=== PATIENT | female | born 1950 | race Caucasian/White ===

== ENCOUNTER 2022-09-16 14:13 | Observation (INO) ==
[2022-09-16] MEDS ORDERED: SODIUM CHLORIDE 0.9% 1000ML 500 ML IV ONE (14:41)
--- NOTE | 2022-09-16 14:53 | Emergency Department Note ---
History of Present Illness General Chief complaint: Altered Mental Status Stated complaint: MEMORY LOSS, WEAKNESS, NUMBNESS, TINGLING Time Seen by Provider: 09/16/22 14:30 Source: patient and family (Daughter is at bedside) History of Present Illness Provider complaint: Weakness numbness altered mental status 72-year-old female presents emergency department for weakness numbness and altered mental status. Daughter reports that she had not heard much from the m other today so she came home and found her on the toilet very confused. She states she is very weak and having difficulty standing and moving. Patient reports she cannot remember what happened today. Daughter reports that she was at the patient's house at 8 PM yesterday and she is totally normal. The daughter does report that the patient was reporting extreme stress yesterday Home Medications Medication Instructions Recorded Confirmed Type multivitamin 1 tab PO DAILY 09/16/22 09/16/22 History Allergies Allergy/AdvReac Type Severity Reaction Status Date / Time No Known Allergies Allergy Unverified 09/16/22 17:25 Past Med/Surg History Medical History (Updated 09/16/22 @ 19:48 by Abraham Castelan MD) No pertinent family history No pertinent past medical history Surgical History (Updated 09/16/22 @ 14:52 by Abraham Castelan MD) No pertinent past surgical history Social History Smoking Status: Never smoker Feels Safe at Home: Yes Physical Exam Vital Signs Vital Signs - 24 hr 09/16/22 14:21 09/16/22 15:09 09/16/22 15:41 Temperature 36.8 C Temperature Source Skin Pulse Rate 101 H 97 H Pulse Rate [Apical] 98 H Respiratory Rate 18 18 Blood Pressure 138/73 Blood Pressure [Right Arm] 131/71 Blood Pressure Mean 94 Blood Pressure Mean [Right Arm] 91 Blood Pressure Position [Right Arm] Lying Pulse Oximetry 95 95 Oxygen Delivery Method Room Air Room Air Sepsis Recent Fever Within 48 Hours No Sepsis New/Unexplained Change in Mental Status No Sepsis Action Taken by Nursing No Action Required 09/16/22 16:14 09/16/22 19:40 Temperature Temperature Source Pulse Rate 87 Pulse Rate [Apical] 103 H Respiratory Rate 18 Blood Pressure Blood Pressure [Right Arm] 136/72 Blood Pressure Mean Blood Pressure Mean [Right Arm] 93 Blood Pressure Position [Right Arm] Pulse Oximetry 97 Oxygen Delivery Method Room Air Sepsis Recent Fever Within 48 Hours Sepsis New/Unexplained Change in Mental Status Sepsis Action Taken by Nursing Physical Exam GENERAL: She is oriented to person, place, and time. She appears well-developed and well-nourished. She does not appear distressed. HENT: Exam performed. -Head: Normocephalic and atraumatic. -Right Ear: External ear normal. No mastoid erythema -Left Ear: External ear normal. No mastoid erythema EYES: Conjunctivae and EOM are normal.Right eye exhibits no discharge. Left eye exhibits no discharge. No scleral icterus. NECK: Normal range of motion. Neck supple. No JVD present. No spinous process tenderness present. No carotid bruit present. No rigidity. No tracheal deviation and normal range of motion present. No Brudzinski's sign and no Kernig's sign noted. CV: Normal rate, regular rhythm, normal heart sounds and intact distal pulses. There is no peripheral edema. Palpable radial pulses bue. PULM/CHEST: Effort normal and breath sounds normal. No respiratory distress. No stridor. She has no wheezes. She has no rales. MUSC/SKEL: Normal range of motion. There is no peripheral edema, tenderness or deformity. NEURO: No aphasia or dysarthria. She has normal strength. No cranial nerve deficit or sensory deficit. Cerebellar tests wnl. SKIN: Skin is warm and dry. She is not diaphoretic. Course Course 1430: The patient was evaluated in room C10. A complete history and physical exam was performed Cardiac monitoring: An order was placed for continuous cardiac monitoring. The monitor shows a rate of 100 with sinus rhythm interpreted by in 1711: Vital signs stable. Labs and imaging within normal limits. Patient alert and oriented with no focal neurological deficit no meningeal signs. Family now reports that the patient was recently bit by a tick. No lab evidence of anapla smosis this time however peripheral smear and Lyme screen ordered for the patient. Patient was offered inpatient observation for MRI and neurology evaluation versus outpatient follow-up and outpatient MRI. Family discussed with the patient and they request inpatient observation. [facility] team Dr. Mayfield will be notified. 1945: Vital signs stable. Patient's Lyme testing came back equivocal. Patient be given Doxy orally. Administered Medications Discontinued Medications Sodium Chloride (Nss 1000ml) 500 mls @ 999 mls/hr IV .Q31M ONE Stop: 09/16/22 15:11 Last Infusion: 09/16/22 18:01 Dose: 0 mls/hr Documented By: Admin: 09/16/22 16:13 Dose: 999 mls/hr Documented By: MIESHA Ioversol (Optiray 320 500ml) 106 ml IV ONCE ONE Stop: 09/16/22 16:05 Last Admin: 09/16/22 16:05 Dose: 106 ml Documented By: [facility] Medical Decision Making Laboratory Data Attestation: I reviewed the patient's lab results. 09/16/22 14:50 09/16/22 14:50 Lab Results 09/16/22 09/16/22 09/16/22 Range/Units 14:35 14:50 14:50 WBC 4.66 L (4.8-10.8) K/ul RBC 4.14 L (4.20-5.40) M/uL Hgb 12.7 (12.0-16.0) g/dl Hct 37.6 (37.0-47.0) % MCV 90.8 (80.0-100.0) fL MCH 30.7 (25.0-34.0) pg MCHC 33.8 (32.0-36.0) g/dL RDW Std Deviation 44.6 (36.4-46.3) fL RDW Coeff of Danielle 13.4 (11.5-14.5) % Plt Count 221 (130-400) K/uL MPV 8.9 L (9.4-12.4) fL Immature Gran % (Auto) 0.4 % Neut % (Auto) 79.8 % Lymph % (Auto) 13.5 % [place] % (Auto) 5.2 % Eos % (Auto) 0.2 % Baso % (Auto) 0.9 % Neut # (Auto) 3.72 (1.40-6.50) K/uL Lymph # (Auto) 0.63 L (1.2-3.4) K/uL [place] # (Auto) 0.24 (0.11-0.59) K/uL Eos # (Auto) 0.01 (0-0.50) K/uL Baso # (Auto) 0.04 (0-0.2) K/uL Immature Gran # (Auto) 0.02 (0.01-0.20) K/uL PT 11.0 (9.0-12.0) Seconds INR 1.0 (0.9-1.1) APTT 25.0 (21.0-31.0) Seconds PTT Ratio 0.9 VBG pH (7.36-7.41) VBG pCO2 (38-50) mmHg VBG pO2 mmHg VBG HCO3 mmol/L VBG O2 Saturation % VBG Base Excess mEq/L Carboxyhemoglobin % THgb Sodium (136-145) mmol/L Potassium (3.5-5.1) mmol/L Chloride (98-107) mmol/L Carbon Dioxide (21-32) mmol/L Anion Gap (3-11) BUN (6-23) mg/dl Creatinine (0.6-1.2) mg/dl Est Cr Clr Drug Dosing Est GFR ( Amer) ml/min Est GFR (Non-Af Amer) ml/min BUN/Creatinine Ratio (10-20) Glucose (70-99(Fasting)) mg/dl POC Glucose 100 H (70-99) mg/dl Calcium (8.6-10.3) mg/dl Magnesium (1.7-2.4) mg/dl Total Bilirubin (0.2-1.0) mg/dl AST (13-39) U/L ALT (7-52) U/L Alkaline Phosphatase (34-104) U/L Ammonia (18-72) umol/L Total Creatine Kinase (26-192) U/L Troponin I High Sens (0-14) pg/ml Total Protein (6.0-8.3) gm/dl Albumin (3.4-5.0) gm/dl Globulin (2.5-4.0) gm/dl Albumin/Globulin Ratio (0.9-2) Urine Color Urine Appearance (Clear) Urine pH (4.5-7.5) Ur Specific Brunson (1.000-1.030) Urine Protein (Negative) Urine Glucose (UA) (Negative) Urine Ketones (Negative) Urine Blood (Negative) Urine Nitrite (Negative) Urine Bilirubin (Negative) Urine Urobilinogen (Negative) Ur Leukocyte Esterase (Negative) Urine WBC (Auto) (0-5) /hpf Urine RBC (Auto) (0-4) /hpf U Hyaline Cast (Auto) (0-5) /lpf U Epithel Cells (Auto) (0-5) /lpf Urine Bacteria (Auto) (Negative) Calcium Oxalate Crystal (None Prsent) Ethyl Alcohol mg/dL (<10.0) mg/dl Anaplasma Smear Babesia Smear Lyme Disease IgG Ab (Negative) Lyme Disease IgM Ab (Negative) SARS-CoV-2, RNA, NAAT (NEGATIVE) Blood Type Antibody Screen 09/16/22 09/16/22 09/16/22 Range/Units 14:50 14:50 14:50 WBC (4.8-10.8) K/ul RBC (4.20-5.40) M/uL Hgb (12.0-16.0) g/dl Hct (37.0-47.0) % MCV (80.0-100.0) fL MCH (25.0-34.0) pg MCHC (32.0-36.0) g/dL RDW Std Deviation (36.4-46.3) fL RDW Coeff of Danielle (11.5-14.5) % Plt Count (130-400) K/uL MPV (9.4-12.4) fL Immature Gran % (Auto) % Neut % (Auto) % Lymph % (Auto) % [place] % (Auto) % Eos % (Auto) % Baso % (Auto) % Neut # (Auto) (1.40-6.50) K/uL Lymph # (Auto) (1.2-3.4) K/uL [place] # (Auto) (0.11-0.59) K/uL Eos # (Auto) (0-0.50) K/uL Baso # (Auto) (0-0.2) K/uL Immature Gran # (Auto) (0.01-0.20) K/uL PT (9.0-12.0) Seconds INR (0.9-1.1) APTT (21.0-31.0) Seconds PTT Ratio VBG pH (7.36-7.41) VBG pCO2 (38-50) mmHg VBG pO2 mmHg VBG HCO3 mmol/L VBG O2 Saturation % VBG Base Excess mEq/L Carboxyhemoglobin % THgb Sodium 135 L (136-145) mmol/L Potassium 3.8 (3.5-5.1) mmol/L Chloride 104 (98-107) mmol/L Carbon Dioxide 24 (21-32) mmol/L Anion Gap 7 (3-11) BUN 9 (6-23) mg/dl Creatinine 0.69 (0.6-1.2) mg/dl Est Cr Clr Drug Dosing Not Reportable Est GFR ( Amer) 99.4 ml/min Est GFR (Non-Af Amer) 85.8 ml/min BUN/Creatinine Ratio 13.0 (10-20) Glucose 103 H (70-99(Fasting)) mg/dl POC Glucose (70-99) mg/dl Calcium 8.8 (8.6-10.3) mg/dl Magnesium 2.0 (1.7-2.4) mg/dl Total Bilirubin 0.6 (0.2-1.0) mg/dl AST 15 (13-39) U/L ALT 11 (7-52) U/L Alkaline Phosphatase 34 (34-104) U/L Ammonia 22.0 (18-72) umol/L Total Creatine Kinase 50 (26-192) U/L Troponin I High Sens 4.7 (0-14) pg/ml Total Protein 7.4 (6.0-8.3) gm/dl Albumin 4.0 (3.4-5.0) gm/dl Globulin 3.4 (2.5-4.0) gm/dl Albumin/Globulin Ratio 1.2 (0.9-2) Urine Color Urine Appearance (Clear) Urine pH (4.5-7.5) Ur Specific Brunson (1.000-1.030) Urine Protein (Negative) Urine Glucose (UA) (Negative) Urine Ketones (Negative) Urine Blood (Negative) Urine Nitrite (Negative) Urine Bilirubin (Negative) Urine Urobilinogen (Negative) Ur Leukocyte Esterase (Negative) Urine WBC (Auto) (0-5) /hpf Urine RBC (Auto) (0-4) /hpf U Hyaline Cast (Auto) (0-5) /lpf U Epithel Cells (Auto) (0-5) /lpf Urine Bacteria (Auto) (Negative) Calcium Oxalate Crystal (None Prsent) Ethyl Alcohol mg/dL (<10.0) mg/dl Anaplasma Smear See Comment Babesia Smear See Comment Lyme Disease IgG Ab (Negative) Lyme Disease IgM Ab (Negative) SARS-CoV-2, RNA, NAAT (NEGATIVE) Blood Type Antibody Screen 09/16/22 09/16/22 09/16/22 Range/Units 14:50 14:56 14:56 WBC (4.8-10.8) K/ul RBC (4.20-5.40) M/uL Hgb (12.0-16.0) g/dl Hct (37.0-47.0) % MCV (80.0-100.0) fL MCH (25.0-34.0) pg MCHC (32.0-36.0) g/dL RDW Std Deviation (36.4-46.3) fL RDW Coeff of Danielle (11.5-14.5) % Plt Count (130-400) K/uL MPV (9.4-12.4) fL Immature Gran % (Auto) % Neut % (Auto) % Lymph % (Auto) % [place] % (Auto) % Eos % (Auto) % Baso % (Auto) % Neut # (Auto) (1.40-6.50) K/uL Lymph # (Auto) (1.2-3.4) K/uL [place] # (Auto) (0.11-0.59) K/uL Eos # (Auto) (0-0.50) K/uL Baso # (Auto) (0-0.2) K/uL Immature Gran # (Auto) (0.01-0.20) K/uL PT (9.0-12.0) Seconds INR (0.9-1.1) APTT (21.0-31.0) Seconds PTT Ratio VBG pH (7.36-7.41) VBG pCO2 (38-50) mmHg VBG pO2 mmHg VBG HCO3 mmol/L VBG O2 Saturation % VBG Base Excess mEq/L Carboxyhemoglobin % THgb Sodium (136-145) mmol/L Potassium (3.5-5.1) mmol/L Chloride (98-107) mmol/L Carbon Dioxide (21-32) mmol/L Anion Gap (3-11) BUN (6-23) mg/dl Creatinine (0.6-1.2) mg/dl Est Cr Clr Drug Dosing Est GFR ( Amer) ml/min Est GFR (Non-Af Amer) ml/min BUN/Creatinine Ratio (10-20) Glucose (70-99(Fasting)) mg/dl POC Glucose (70-99) mg/dl Calcium (8.6-10.3) mg/dl Magnesium (1.7-2.4) mg/dl Total Bilirubin (0.2-1.0) mg/dl AST (13-39) U/L ALT (7-52) U/L Alkaline Phosphatase (34-104) U/L Ammonia (18-72) umol/L Total Creatine Kinase (26-192) U/L Troponin I High Sens (0-14) pg/ml Total Protein (6.0-8.3) gm/dl Albumin (3.4-5.0) gm/dl Globulin (2.5-4.0) gm/dl Albumin/Globulin Ratio (0.9-2) Urine Color Urine Appearance (Clear) Urine pH (4.5-7.5) Ur Specific Brunson (1.000-1.030) Urine Protein (Negative) Urine Glucose (UA) (Negative) Urine Ketones (Negative) Urine Blood (Negative) Urine Nitrite (Negative) Urine Bilirubin (Negative) Urine Urobilinogen (Negative) Ur Leukocyte Esterase (Negative) Urine WBC (Auto) (0-5) /hpf Urine RBC (Auto) (0-4) /hpf U Hyaline Cast (Auto) (0-5) /lpf U Epithel Cells (Auto) (0-5) /lpf Urine Bacteria (Auto) (Negative) Calcium Oxalate Crystal (None Prsent) Ethyl Alcohol mg/dL < 10.0 (<10.0) mg/dl Anaplasma Smear Babesia Smear Lyme Disease IgG Ab Positive A (Negative) Lyme Disease IgM Ab Equivocal A (Negative) SARS-CoV-2, RNA, NAAT (NEGATIVE) Blood Type A Positive Antibody Screen NEGATIVE 09/16/22 09/16/22 09/16/22 Range/Units 14:56 14:56 17:20 WBC (4.8-10.8) K/ul RBC (4.20-5.40) M/uL Hgb (12.0-16.0) g/dl Hct (37.0-47.0) % MCV (80.0-100.0) fL MCH (25.0-34.0) pg MCHC (32.0-36.0) g/dL RDW Std Deviation (36.4-46.3) fL RDW Coeff of Danielle (11.5-14.5) % Plt Count (130-400) K/uL MPV (9.4-12.4) fL Immature Gran % (Auto) % Neut % (Auto) % Lymph % (Auto) % [place] % (Auto) % Eos % (Auto) % Baso % (Auto) % Neut # (Auto) (1.40-6.50) K/uL Lymph # (Auto) (1.2-3.4) K/uL [place] # (Auto) (0.11-0.59) K/uL Eos # (Auto) (0-0.50) K/uL Baso # (Auto) (0-0.2) K/uL Immature Gran # (Auto) (0.01-0.20) K/uL PT (9.0-12.0) Seconds INR (0.9-1.1) APTT (21.0-31.0) Seconds PTT Ratio VBG pH 7.42 H (7.36-7.41) VBG pCO2 40 (38-50) mmHg VBG pO2 22 mmHg VBG HCO3 26 mmol/L VBG O2 Saturation < 60.0 % VBG Base Excess 1.3 mEq/L Carboxyhemoglobin 1.0 % THgb Sodium (136-145) mmol/L Potassium (3.5-5.1) mmol/L Chloride (98-107) mmol/L Carbon Dioxide (21-32) mmol/L Anion Gap (3-11) BUN (6-23) mg/dl Creatinine (0.6-1.2) mg/dl Est Cr Clr Drug Dosing Est GFR ( Amer) ml/min Est GFR (Non-Af Amer) ml/min BUN/Creatinine Ratio (10-20) Glucose (70-99(Fasting)) mg/dl POC Glucose (70-99) mg/dl Calcium (8.6-10.3) mg/dl Magnesium (1.7-2.4) mg/dl Total Bilirubin (0.2-1.0) mg/dl AST (13-39) U/L ALT (7-52) U/L Alkaline Phosphatase (34-104) U/L Ammonia (18-72) umol/L Total Creatine Kinase (26-192) U/L Troponin I High Sens (0-14) pg/ml Total Protein (6.0-8.3) gm/dl Albumin (3.4-5.0) gm/dl Globulin (2.5-4.0) gm/dl Albumin/Globulin Ratio (0.9-2) Urine Color Urine Appearance (Clear) Urine pH (4.5-7.5) Ur Specific Brunson (1.000-1.030) Urine Protein (Negative) Urine Glucose (UA) (Negative) Urine Ketones (Negative) Urine Blood (Negative) Urine Nitrite (Negative) Urine Bilirubin (Negative) Urine Urobilinogen (Negative) Ur Leukocyte Esterase (Negative) Urine WBC (Auto) (0-5) /hpf Urine RBC (Auto) (0-4) /hpf U Hyaline Cast (Auto) (0-5) /lpf U Epithel Cells (Auto) (0-5) /lpf Urine Bacteria (Auto) (Negative) Calcium Oxalate Crystal (None Prsent) Ethyl Alcohol mg/dL (<10.0) mg/dl Anaplasma Smear Babesia Smear Lyme Disease IgG Ab (Negative) Lyme Disease IgM Ab (Negative) SARS-CoV-2, RNA, NAAT NEGATIVE (NEGATIVE) Blood Type Antibody Screen 09/16/22 Range/Units 17:20 WBC (4.8-10.8) K/ul RBC (4.20-5.40) M/uL Hgb (12.0-16.0) g/dl Hct (37.0-47.0) % MCV (80.0-100.0) fL MCH (25.0-34.0) pg MCHC (32.0-36.0) g/dL RDW Std Deviation (36.4-46.3) fL RDW Coeff of Danielle (11.5-14.5) % Plt Count (130-400) K/uL MPV (9.4-12.4) fL Immature Gran % (Auto) % Neut % (Auto) % Lymph % (Auto) % [place] % (Auto) % Eos % (Auto) % Baso % (Auto) % Neut # (Auto) (1.40-6.50) K/uL Lymph # (Auto) (1.2-3.4) K/uL [place] # (Auto) (0.11-0.59) K/uL Eos # (Auto) (0-0.50) K/uL Baso # (Auto) (0-0.2) K/uL Immature Gran # (Auto) (0.01-0.20) K/uL PT (9.0-12.0) Seconds INR (0.9-1.1) APTT (21.0-31.0) Seconds PTT Ratio VBG pH (7.36-7.41) VBG pCO2 (38-50) mmHg VBG pO2 mmHg VBG HCO3 mmol/L VBG O2 Saturation % VBG Base Excess mEq/L Carboxyhemoglobin % THgb Sodium (136-145) mmol/L Potassium (3.5-5.1) mmol/L Chloride (98-107) mmol/L Carbon Dioxide (21-32) mmol/L Anion Gap (3-11) BUN (6-23) mg/dl Creatinine (0.6-1.2) mg/dl Est Cr Clr Drug Dosing Est GFR ( Amer) ml/min Est GFR (Non-Af Amer) ml/min BUN/Creatinine Ratio (10-20) Glucose (70-99(Fasting)) mg/dl POC Glucose (70-99) mg/dl Calcium (8.6-10.3) mg/dl Magnesium (1.7-2.4) mg/dl Total Bilirubin (0.2-1.0) mg/dl AST (13-39) U/L ALT (7-52) U/L Alkaline Phosphatase (34-104) U/L Ammonia (18-72) umol/L Total Creatine Kinase (26-192) U/L Troponin I High Sens (0-14) pg/ml Total Protein (6.0-8.3) gm/dl Albumin (3.4-5.0) gm/dl Globulin (2.5-4.0) gm/dl Albumin/Globulin Ratio (0.9-2) Urine Color Yellow Urine Appearance Clear (Clear) Urine pH 6.5 (4.5-7.5) Ur Specific Brunson > 1.045 H (1.000-1.030) Urine Protein Negative (Negative) Urine Glucose (UA) Negative (Negative) Urine Ketones 1+ H (Negative) Urine Blood 2+ H (Negative) Urine Nitrite Negative (Negative) Urine Bilirubin Negative (Negative) Urine Urobilinogen Negative (Negative) Ur Leukocyte Esterase 1+ H (Negative) Urine WBC (Auto) 10-30 H (0-5) /hpf Urine RBC (Auto) 5-10 H (0-4) /hpf U Hyaline Cast (Auto) 1-5 (0-5) /lpf U Epithel Cells (Auto) >30 H (0-5) /lpf Urine Bacteria (Auto) Negative (Negative) Calcium Oxalate Crystal Present A (None Prsent) Ethyl Alcohol mg/dL (<10.0) mg/dl Anaplasma Smear Babesia Smear Lyme Disease IgG Ab (Negative) Lyme Disease IgM Ab (Negative) SARS-CoV-2, RNA, NAAT (NEGATIVE) Blood Type Antibody Screen Imaging Data Attestation: I personally reviewed and interpreted this imaging study as follows: My Impression: Chest x-ray negative. Airway clear. No pneumothorax. No consolidation. No cardiomegaly or cephalization.. No free air under the diaphragm. No fractures of the skeletal structures. Radiologist's Impression: Chest X-Ray 09/16/22 14:41 SINGLE VIEW CHEST CLINICAL HISTORY: Neurological deficit. Strokelike symptoms. FINDINGS: An AP, portable, upright chest radiograph is obtained. No prior studies are available for comparison at the time of dictation. The cardiomediastinal silhouette is top normal for projection. There is mild bibasilar scarring/atelectasis. The lungs and pleural spaces are otherwise clear. No pneumothorax is seen. The skeletal structures are osteopenic. The bony thorax is grossly intact. Calcific tendinopathy is noted in the right shoulder. IMPRESSION: No active disease in the chest. ACT 112: Negative or not required by law. Electronically signed by: Isaias Lee M.D. 09/16/2022 3:[address] 09/16/22 14:41 CT angio head w con, CT head/brain wo con, CT angio neck with con CLINICAL HISTORY: neuro deficit, acute stroke suspected TECHNIQUE: Contiguous axial CT images of the head were acquired from the base of the skull to the vertex without intravenous contrast administration. CT angiography of the head and neck was performed following intravenous administration of iodinated contrast. Coronal and sagittal MIPS were obtained from the axial data set and were submitted for review. Automated dose lowering techniques and/or adjustment according to patient size were utilized for this examination. All measurements were calculated based on NASCET criteria. CT DOSE: 946.30 mGy.cm Comparison: None available at the time of this dictation. FINDINGS: CT head: There is no acute intracranial hemorrhage or evidence of acute territorial infarction. No shift of the midline structures, mass effect, or extra-axial abnormalities are shown. Small thyroid nodules are seen which do not require follow-up by ACR criteria. CTA Neck: A 3 vessel aortic arch is shown. There is no significant atherosclerotic plaque in the aortic arch or the origins of the innominate, left common carotid, and left subclavian arteries. The common carotid, external dorado tid, cervical segments of the internal carotid arteries, and the cervical segments of the vertebral arteries are patent without hemodynamically significant stenosis. The left vertebral artery is dominant. CTA Head: The anterior and posterior cerebral circulations are patent. origin of the right posterior cerebral artery is seen. IMPRESSION: 1. No acute intracranial hemorrhage, evidence of acute territorial infarction, or other acute intracranial disease process. 2. No occlusion, hemodynamically significant stenosis, or dissection in the major cervical arteries. 3. No occlusion, hemodynamically significant stenosis, aneurysm, dissection, or arteriovenous malformation in the major intracranial arteries. Assessment of stenosis of the internal carotid arteries is based on NASCET criteria. ACT 112: Negative or not required by law. Electronically signed by: Ahmet Story M.D. 09/16/2022 4:27 PM Head CTA 09/16/22 14:41 CT angio head w con, CT head/brain wo con, CT angio neck with con CLINICAL HISTORY: neuro deficit, acute stroke suspected TECHNIQUE: Contiguous axial CT images of the head were acquired from the base of the skull to the vertex without intravenous contrast administration. CT angiography of the head and neck was performed following intravenous administration of iodinated contrast. Coronal and sagittal MIPS were obtained from the axial data set and were submitted for review. Automated dose lowering techniques and/or adjustment according to patient size were utilized for this examination. All measurements were calculated based on NASCET criteria. CT DOSE: 946.30 mGy.cm Comparison: None available at the time of this dictation. FINDINGS: CT head: There is no acute intracranial hemorrhage or evidence of acute territorial infarction. No shift of the midline structures, mass effect, or extra-axial abnormalities are shown. Small thyroid nodules are seen which do not require follow-up by ACR criteria. CTA Neck: A 3 vessel aortic arch is shown. There is no significant athe rosclerotic plaque in the aortic arch or the origins of the innominate, left common carotid, and left subclavian arteries. The common carotid, external carotid, cervical segments of the internal carotid arteries, and the cervical segments of the vertebral arteries are patent without hemodynamically significant stenosis. The left vertebral artery is dominant. CTA Head: The anterior and posterior cerebral circulations are patent. origin of the right posterior cerebral artery is seen. IMPRESSION: 1. No acute intracranial hemorrhage, evidence of acute territorial infarction, or other acute intracranial disease process. 2. No occlusion, hemodynamically significant stenosis, or dissection in the major cervical arteries. 3. No occlusion, hemodynamically significant stenosis, aneurysm, dissection, or arteriovenous malformation in the major intracranial arteries. Assessment of stenosis of the internal carotid arteries is based on NASCET criteria. ACT 112: Negative or not required by law. Electronically signed by: Ahmet Story M.D. 09/16/2022 4:27 PM Neck CTA 09/16/22 14:41 CT angio head w con, CT head/brain wo con, CT angio neck with con CLINICAL HISTORY: neuro deficit, acute stroke suspected TECHNIQUE: Contiguous axial CT images of the head were acquired from the base of the skull to the vertex without intravenous contrast administration. CT angiog derrell of the head and neck was performed following intravenous administration of iodinated contrast. Coronal and sagittal MIPS were obtained from the axial data set and were submitted for review. Automated dose lowering techniques and/or adjustment according to patient size were utilized for this examination. All measurements were calculated based on NASCET criteria. CT DOSE: 946.30 mGy.cm Comparison: None available at the time of this dictation. FINDINGS: CT head: There is no acute intracranial hemorrhage or evidence of acute territorial infarction. No shift of the midline structures, mass effect, or extra-axial abnormalities are shown. Small thyroid nodules are seen which do not require follow-up by ACR criteria. CTA Neck: A 3 vessel aortic arch is shown. There is no significant atherosclerotic plaque in the aortic arch or the origins of the innominate, left common carotid, and left subclavian arteries. The common carotid, external carotid, cervical segments of the internal carotid arteries, and the cervical segments of the vertebral arteries are patent without hemodynamically significant stenosis. The left vertebral artery is dominant. CTA Head: The anterior and posterior cerebral circulations are patent. origin of the right posterior cerebral artery is seen. IMPRESSION: 1. No acute intracranial hemorrhage, evidence of acute territorial infarction, or other acute intracranial disease process. 2. No occlusion, hemodynamically significant stenosis, or dissection in the major cervical arteries. 3. No occlusion, hemodynamically significant stenosis, aneurysm, dissection, or arteriovenous malformation in the major intracranial arteries. Assessment of stenosis of the internal carotid arteries is based on NASCET criteria. ACT 112: Negative or not required by law. Electronically signed by: Ahmet Story M.D. 09/16/2022 4:27 PM Brain MRI 09/16/22 17:49 Brain MRI WITHOUT CONTRAST HISTORY: Weakness. Confusion. Aphasia. stroke evaluation TECHNIQUE: Multiplanar multisequence MRI of the brain was performed without the use of contrast. COMPARISON STUDY: Head CT 09/16/2022. FINDINGS: There is no mass, hematoma, midline shift, or acute infarct. The paranasal sinuses are clear. The mastoid air cells are clear. The ventricles and sulci demonstrate mild age-related involutional changes. Scattered foci of T2 hyperintensity seen within the periventricular and subcortical white matter are nonspecific but suggestive of mild microvascular ischemic changes. The major vascular flow voids at the skull base are well-maintained. IMPRESSION: No acute intracranial abnormality. ACT 112: Negative or not required by law. Electronically signed by: Claude Anthony M.D. 09/16/2022 7:00 PM [facility] Narrative 1430: The patient was evaluated in room C10. A complete history and physical exam was performed Cardiac monitoring: An order was placed for continuous cardiac monitoring. The monitor shows a rate of 100 with sinus rhythm interpreted by me 1711: Vital signs stable. Labs and imaging within normal limits. Patient alert and oriented with no focal neurological deficit no meningeal signs. Family now reports that the patient was recently bit by a tick. No lab evidence of anaplasmosis this time however peripheral smear and Lyme screen ordered for the patient. Patient was offered inpatient observation for MRI and neurology evaluation versus outpatient follow-up and outpatient MRI. Family discussed with the patient and they request inpatient observation. [facility] team Dr. Mayfield will be notified. 194: Vital signs stable. Patient's Lyme testing came back equivocal. Patient be given Doxy orally. Impression & Plan Stroke-like symptoms, Lyme disease Discharge Plan Visit Data Chief Complaint: Altered Mental Status Stated Complaint: MEMORY LOSS, WEAKNESS, NUMBNESS, TINGLING ED Provider: Abraham Castelan Discharge Problem: Stroke-like symptoms, Lyme disease Patient Disposition: Being Evaluated by Hospitalist Forms Stand Alone Forms: [facility] [place] [facility] Prescriptions Prescriptions: No Action multivitamin Tablet 1 tab PO DAILY Referrals Referrals: PCP,NO [Physician] -
--- NOTE | 2022-09-16 15:07 | XRay Report ---
SINGLE VIEW CHEST CLINICAL HISTORY: Neurological deficit. Strokelike symptoms. FINDINGS: An AP, portable, upright chest radiograph is obtained. No prior studies are available for c omparison at the time of dictation. The cardiomediastinal silhouette is top normal for projection. Th ere is mild bibasilar scarring/atelectasis. The lungs and pleural spaces are otherwise clear. No pneu mothorax is seen. The skeletal structures are osteopenic. The bony thorax is grossly intact. Calcific tendinopathy is noted in the right shoulder. IMPRESSION: No active disease in the chest. ACT 112: Negative or not required by law. Electronically signed by: Isaias Lee M.D. 09/16/2022 3:05 PM
[2022-09-16 15:19] LABS: Base Excess VBG 1.3 mEq/L; HCO3 VBG 26 mmol/L; Oxygen Saturation VBG < 60.0 %; PCO2 VBG 40 mmHg (38-50); PO2 VBG 22 mmHg; pH VBG 7.42 (7.36-7.41)
[2022-09-16 15:20] LABS: Basophils # (auto) 0.04 K/uL (0-0.2); Basophils % (auto) 0.9 %; Eosinophils # (auto) 0.01 K/uL (0-0.50); Eosinophils % (auto) 0.2 %; Hematocrit (blood only) 37.6 % (37.0-47.0); Hemoglobin 12.7 g/dl (12.0-16.0); Immature Granulocytes # (auto) 0.02 K/uL (0.01-0.20); Immature Granulocytes % (auto) 0.4 %; Lymphocytes # (auto) 0.63 K/uL (1.2-3.4); Lymphocytes % (auto) 13.5 %; Mean Corpuscular Hemoglobin 30.7 pg (25.0-34.0); Mean Corpuscular Hgb Conc 33.8 g/dL (32.0-36.0); Mean Corpuscular Volume 90.8 fL (80.0-100.0); Mean Platelet Volume 8.9 fL (9.4-12.4); Monocytes # (auto) 0.24 K/uL (0.11-0.59); Monocytes % (auto) 5.2 %; Neutrophils # (auto) 3.72 K/uL (1.40-6.50); Neutrophils % (auto) 79.8 %; Platelet Count 221 K/uL (130-400); RDW Coefficient of Variation 13.4 % (11.5-14.5); RDW Standard Deviation 44.6 fL (36.4-46.3); Red Blood Count 4.14 M/uL (4.20-5.40); White Blood Count 4.66 K/ul (4.8-10.8)
[2022-09-16 15:30] LABS: Alanine Aminotransferase 11 U/L (7-52); Albumin Globulin Ratio 1.2 (0.9-2); Alkaline Phosphatase 34 U/L (34-104); Anion Gap 7 (3-11); Aspartate Aminotransferase 15 U/L (13-39); Bilirubin,Total 0.6 mg/dl (0.2-1.0); Blood Urea Nitrogen 9 mg/dl (6-23); Calcium 8.8 mg/dl (8.6-10.3); Carbon Dioxide 24 mmol/L (21-32); Chloride 104 mmol/L (98-107); Est GFR (African American) 99.4 ml/min; Est GFR (Non-African American) 85.8 ml/min; Globulin 3.4 gm/dl (2.5-4.0); Glucose 103 mg/dl (70-99(Fasting)); Potassium 3.8 mmol/L (3.5-5.1); Sodium 135 mmol/L (136-145); Total Protein 7.4 gm/dl (6.0-8.3)
[2022-09-16 15:34] LABS: Troponin I High Sensitivity 4.7 pg/ml (0-14)
[2022-09-16 15:43] LABS: Partial Thromboplastin Ratio 0.9
[2022-09-16] MEDS ORDERED: OPTIRAY 320 500ml IV ONE (16:04)
--- NOTE | 2022-09-16 16:29 | CT Scan Report ---
CT angio head w con, CT head/brain wo con, CT angio neck with con CLINICAL HISTORY: neuro deficit, acute stroke suspected TECHNIQUE: Contiguous axial CT images of the head were acquired from the base of the skull to the kathi hilda without intravenous contrast administration. CT angiography of the head and neck was performed f ollowing intravenous administration of iodinated contrast. Coronal and sagittal MIPS were obtained fr om the axial data set and were submitted for review. Automated dose lowering techniques and/or adjus tment according to patient size were utilized for this examination. All measurements were calculated based on NASCET criteria. CT DOSE: 946.30 mGy.cm Comparison: None available at the time of this dictation. FINDINGS: CT head: There is no acute intracranial hemorrhage or evidence of acute territorial infarction. No sh ift of the midline structures, mass effect, or extra-axial abnormalities are shown. Small thyroid nodules are seen which do not require follow-up by ACR criteria. CTA Neck: A 3 vessel aortic arch is shown. There is no significant atherosclerotic plaque in the aor tic arch or the origins of the innominate, left common carotid, and left subclavian arteries. The co mmon carotid, external carotid, cervical segments of the internal carotid arteries, and the cervical segments of the vertebral arteries are patent without hemodynamically significant stenosis. The left vertebral artery is dominant. CTA Head: The anterior and posterior cerebral circulations are patent. origin of the right pos terior cerebral artery is seen. IMPRESSION: 1. No acute intracranial hemorrhage, evidence of acute territorial infarction, or other acute intrac ranial disease process. 2. No occlusion, hemodynamically significant stenosis, or dissection in the major cervical arteries. 3. No occlusion, hemodynamically significant stenosis, aneurysm, dissection, or arteriovenous malfor mation in the major intracranial arteries. Assessment of stenosis of the internal carotid arteries is based on NASCET criteria. ACT 112: Negative or not required by law. Electronically signed by: Ahmet tSory M.D. 09/16/2022 4:27 PM
--- NOTE | 2022-09-16 16:44 | Electrocardiogram Report ---
Test Reason : Blood Pressure : / mmHG Vent. Rate : 095 BPM Atrial Rate : 095 BPM P-R Int : 114 ms QRS Dur : 090 ms QT Int : 372 ms P-R-T Axes : 049 022 031 degrees QTc Int : 467 ms Normal sinus rhythm Normal ECG When compared with ECG of 09-DEC-2000 15:11, No significant change was found Confirmed by Kike Romero ([id number]) on 09/16/2022 4:44:30 PM Referred By: REFERRED SELF Confirmed By:Kike Romero
--- NOTE | 2022-09-16 17:24 | History & Physical Report ---
Date of Service September 16, 2022 Assessment & Plan (1) Stroke-like symptoms: Plan: -Admit to med/tele -Currently stable -The patient has had an acute change in mental status per family with her last known well around 8:30 pm last night -At this time her differential is broad including but not limited to ischemic stroke, infection, global amnesia, acute stress reaction, tick borne illness -No focal neuro defects on exam, CT of the head and CTA of the head/neck are n egative -The patient does not recall any events that have occurred today or yesterday -No leukocytosis, CXR negative for sings of infection, UA and tick borne panel are in process -Low suspicion for meningitis at this time as the patient is without headache or meningitic pain of the head, neck or movement of the LE's -Reported tick bite over the weekend, scab and minimal erythema today are inc onsistent with erythema migrans -ECG today shows NSR, family denies previous hx of arrhythmia/afib -BP has been stable, so likely not hypertensive crisis -Will obtain MRI of the brain WO co, TTE, A1C/lipid panel for further evaluation -Follows UA and tick borne panel to rule out infection -Will obtain CK as it is unknown how long she was on the toilet for overnight -BL SCD's for DVT PPX until MRI results -Fall precautions, Q4H neuro checks, dysphagia screen prior to starting diet -PT/OT tomorrow, Neuro consult if needed after the result of her workup is complete AM CBC, BMP Plan The patient was discussed with Dr. Mayfield at the time of the admission History of Present Illness Chief Complaint: AMS Primary Care Provider: Reina Rudd is a 72 year old female with no significant PMH per family who presented to the [facility] ED with her daughters on 09/16/22 due to AMS. Per the ED staff, the patient's daughter found the patient on the toilet this am. According to the daughter the patient appeared altered and was taking increased time to respond to questions than her baseline. In the ED the patient was noted to be tachycardic at 103 but otherwise stable. Labs were significant for a leukopenia of 4.66, lymphocyte count of 0.63, negative alcohol level with UA and tick borne panel pending. CT of the head and CTA of the head/neck were negative for acute abnormalities. Chest xray was also negative for abnormalities. Prior to admission the patient was given 500 mL NSS. At the time of the exam the patient was sitting in bed in no acute distress with her 3 daughters sitting bedside, history was mainly obtained from her daughter's due to her current mental status. They state that at baseline the patient is completely alert and oriented. She lives at home with her and is his primary caregiver. She was in her normal state of health yesterday with her last known well being around 8:30 pm. One of her daughter's was at her house yesterday to help open their pool and confirmed that the patient was herself. This am her one daughter called the patient who did not picking supervisor multiple times, which is no normal for her. Her daughter went to her home and found the patient sitting on the toilet with her pajamas still on; this was around 1 pm. The daughter who found the patient explained that the patient was confused and was unable to verbalize her thoughts, she denies any obvious focal weakness at that time. Her daughters state that the patient has been under a lot of stress lately but has not companied of fever, chills, headache, changes in vision, hearing, taste, and smell, chest pain, SOB, abd pain, nausea, vomiting, dysuria, increased urinary frequency, hematuria, melena, diarrhea, LE swelling and recent trauma. The patient then denies all of the same ROS questions when asked directly. Her daughter state that the patient told them over the weekend that she pull a tick off her right thigh, they were unable to see the tick themselves. The patient does not have a previous history of tobacco absue, frequent alcohol use, heart disease, neurologic disease, or dyslipidemia. They confirm her only current medication is a multivitamin. Her daughters confirm that she is still not acting herself at the time of the exam, this has been an acute change since last night. The patient is a full code and her daughters would make medical decisions for her if she could not make them herself. Please refer to Dr. Mayfield's attestation for any changes to the treatment plan. Allergies Allergy/AdvReac Type Severity Reaction Status Date / Time No Known Allergies Allergy Unverified 09/16/22 17:25 Home Medications Medication Instructions Recorded Confirmed Type multivitamin 1 tab PO DAILY 09/16/22 09/16/22 History Past Med/Surg History Medical History (Updated 09/16/22 @ 19:48 by Abraham Castelan MD) No pertinent family history No pertinent past medical history Surgical History (Updated 09/16/22 @ 14:52 by Abraham Castelan MD) No pertinent past surgical history Social History Smoking Status: Never smoker Hx Alcohol Use: Yes Alcohol type: beer, wine and hard liquor Hx Substance Use: No Preferred Language: Georgian Communication Ability: Effective Home Mortgage Disclosure Act Specialist Required: No Beliefs That Will Affect Care: None Current Living Situation: Spouse Other Information That Helps Us Care for You: No Feels Safe at Home: Yes Safety Concerns: Feels Safe At This Time Assistive Devices: Glasses Assistive Devices Comment: reading glasses Physical Exam Physical Exam: Physical Exam: General: In no acute distress, younger than stated age, well-nourished, good hygiene, non-toxic appearing HEENT: Normocephalic, atraumatic, no scleral icterus, pupils around round, symmetrical, and reactive to light, moist mucus membranes, trachea midline, no thyromegaly Chest/Pulm: No respiratory distress, symmetrical chest expansion, clear breath sounds throughout Cardiac: RRR, no murmurs noted Abdomen: Negative for ascites and bruising, normoactive bowel sounds, soft, non-tender to palpation throughout Musculoskeletal: Symmetrical and without signs of acute trauma, upper and lower extremities with full ROM, no atrophy, spasticity, or flaccidity Extremities: Radial, dorsalis pedis, and posterior tibial pulses are intact and symmetrical, no edema noted in the BL LE's Skin: Patient with a scab with minimal surrounding erythema on the lateral right thigh, no sign of a Bullseye rash, no drainage from the area or sign of infection Neuro: Alert and oriented to person, place, month, year, no focal defects, CN II-XII tested and intact, finger to nose test negative, negative pronator drift, no tremors noted Psych: No acute distress, calm and cooperative during the exam Results & Data Results & Data Vital Signs (Past 12 Hours) Vital Signs Temp Pulse Pulse Resp BP BP Pulse Ox 09/16/22 16:14 103 H 18 136/72 97 09/16/22 15:41 97 H 09/16/22 15:09 98 H 18 131/71 95 09/16/22 14:21 36.8 C 101 H 18 138/73 95 O2 Del Method 09/16/22 16:14 Room Air 09/16/22 15:41 09/16/22 15:09 Room Air 09/16/22 14:21 Room Air Laboratory Results Abnormal lab results 09/16/22 09/16/22 09/16/22 Range/Units 14:35 14:50 14:50 WBC 4.66 L (4.8-10.8) K/ul RBC 4.14 L (4.20-5.40) M/uL MPV 8.9 L (9.4-12.4) fL Lymph # (Auto) 0.63 L (1.2-3.4) K/uL VBG pH (7.36-7.41) Sodium 135 L (136-145) mmol/L Glucose 103 H (70-99(Fasting)) mg/dl POC Glucose 100 H (70-99) mg/dl 09/16/22 Range/Units 14:56 WBC (4.8-10.8) K/ul RBC (4.20-5.40) M/uL MPV (9.4-12.4) fL Lymph # (Auto) (1.2-3.4) K/uL VBG pH 7.42 H (7.36-7.41) Sodium (136-145) mmol/L Glucose (70-99(Fasting)) mg/dl POC Glucose (70-99) mg/dl Diagnostic Findings Chest X-Ray 09/16/22 14:41 SINGLE VIEW CHEST CLINICAL HISTORY: Neurological deficit. Strokelike symptoms. FINDINGS: An AP, portable, upright chest radiograph is obtained. No prior studies are available for comparison at the time of dictation. The cardiomediastinal silhouette is top normal for projection. There is mild bibasilar scarring/atelectasis. The lungs and pleural spaces are otherwise clear. No pneumothorax is seen. The skeletal structures are osteopenic. The bony thorax is grossly intact. Calcific tendinopathy is noted in the right shoulder. IMPRESSION: No active disease in the chest. ACT 112: Negative or not required by law. Electronically signed by: Isaias Lee M.D. 09/16/2022 3:[address] 09/16/22 14:41 CT angio head w con, CT head/brain wo con, CT angio neck with con CLINICAL HISTORY: neuro deficit, acute stroke suspected TECHNIQUE: Contiguous axial CT images of the head were acquired from the base of the skull to the vertex without intravenous contrast administration. CT angiography of the head and neck was performed following intravenous administration of iodinated contrast. Coronal and sagittal MIPS were obtained from the axial data set and were submitted for review. Automated dose lowering techniques and/or adjustment according to patient size were utilized for this examination. All measurements were calculated based on NASCET criteria. CT DOSE: 946.30 mGy.cm Comparison: None available at the time of this dictation. FINDINGS: CT head: There is no acute intracranial hemorrhage or evidence of acute territorial infarction. No shift of the midline structures, mass effect, or extra-axial abnormalities are shown. Small thyroid nodules are seen which do not require follow-up by ACR criteria. CTA Neck: A 3 vessel aortic arch is shown. There is no significant atherosclerotic plaque in the aortic arch or the origins of the innominate, left common carotid, and left subclavian arteries. The common carotid, external carotid, cervical segments of the internal carotid arteries, and the cervical segments of the vertebral arteries are patent without hemodynamically significant stenosis. The left vertebral artery is dominant. CTA Head: The anterior and posterior cerebral circulations are patent. origin of the right posterior cerebral artery is seen. IMPRESSION: 1. No acute intracranial hemorrhage, evidence of acute territorial infarction, or other acute intracranial disease process. 2. No occlusion, hemodynamically significant stenosis, or dissection in the major cervical arteries. 3. No occlusion, hemodynamically significant stenosis, aneurysm, dissection, or arteriovenous malformation in the major intracranial arteries. Assessment of stenosis of the internal carotid arteries is based on NASCET criteria. ACT 112: Negative or not required by law. Electronically signed by: Ahmet Story M.D. 09/16/2022 4:27 PM Head CTA 09/16/22 14:41 CT angio head w con, CT head/brain wo con, CT angio neck with con CLINICAL HISTORY: neuro deficit, acute stroke suspected TECHNIQUE: Contiguous axial CT images of the head were acquired from the base of the skull to the vertex without intravenous contrast administration. CT angiography of the head and neck was performed following intravenous administration of iodinated contrast. Coronal and sagittal MIPS were obtained from the axial data set and were submitted for review. Automated dose lowering techniques and/or adjustment according to patient size were utilized for this examination. All measurements were calculated based on NASCET criteria. CT DOSE: 946.30 mGy.cm Comparison: None available at the time of this dictation. FINDINGS: CT head: There is no acute intracranial hemorrhage or evidence of acute territorial infarction. No shift of the midline structures, mass effect, or extra-axial abnormalities are shown. Small thyroid nodules are seen which do not require follow-up by ACR criteria. CTA Neck: A 3 vessel aortic arch is shown. There is no significant atherosclerotic plaque in the aortic arch or the origins of the innominate, left common carotid, and left subclavian arteries. The common carotid, external carotid, cervical segments of the internal carotid arteries, and the cervical segments of the vertebral arteries are patent without hemodynamically significant stenosis. The left vertebral artery is dominant. CTA Head: The anterior and posterior cerebral circulations are patent. origin of the right posterior cerebral artery is seen. IMPRESSION: 1. No acute intracranial hemorrhage, evidence of acute territorial infarction, or other acute intracranial disease process. 2. No occlusion, hemodynamically significant stenosis, or dissection in the major cervical arteries. 3. No occlusion, hemodynamically significant stenosis, aneurysm, dissection, or arteriovenous malformation in the major intracranial arteries. Assessment of stenosis of the internal carotid arteries is based on NASCET criteria. ACT 112: Negative or not required by law. Electronically signed by: Ahmet Story M.D. 09/16/2022 4:27 PM Neck CTA 09/16/22 14:41 CT angio head w con, CT head/brain wo con, CT angio neck with con CLINICAL HISTORY: neuro deficit, acute stroke suspected TECHNIQUE: Contiguous axial CT images of the head were acquired from the base of the skull to the vertex without intravenous contrast administration. CT angiography of the head and neck was performed following intravenous administration of iodinated contrast. Coronal and sagittal MIPS were obtained from the axial data set and were submitted for review. Automated dose lowering techniques and/or adjustment according to patient size were utilized for this examination. All measurements were calculated based on NASCET criteria. CT DOSE: 946.30 mGy.cm Comparison: None available at the time of this dictation. FINDINGS: CT head: There is no acute intracranial hemorrhage or evidence of acute territorial infarction. No shift of the midline structures, mass effect, or extra-axial abnormalities are shown. Small thyroid nodules are seen which do not require follow-up by ACR criteria. CTA Neck: A 3 vessel aortic arch is shown. There is no significant atherosclerotic plaque in the aortic arch or the origins of the innominate, left common carotid, and left subclavian arteries. The common carotid, external carotid, cervical segments of the internal carotid arteries, and the cervical segments of the vertebral arteries are patent without hemodynamically significant stenosis. The left vertebral artery is dominant. CTA Head: The anterior and posterior cerebral circulations are patent. origin of the right posterior cerebral artery is seen. IMPRESSION: 1. No acute intracranial hemorrhage, evidence of acute territorial infarction, or other acute intracranial disease process. 2. No occlusion, hemodynamically significant stenosis, or dissection in the major cervical arteries. 3. No occlusion, hemodynamically significant stenosis, aneurysm, dissection, or arteriovenous malformation in the major intracranial arteries. Assessment of stenosis of the internal carotid arteries is based on NASCET criteria. ACT 112: Negative or not required by law. Electronically signed by: Ahmet Story M.D. 09/16/2022 4:27 PM ECG Additional Comments: Normal sinus rhythm Normal ECG When compared with ECG of 09-DEC-2000 15:11, No significant change was found Confirmed by Kike Romero ([id number]) on 09/16/2022 4:44:30 PM Code Status & VTE Plan Code Status Full Code VTE Prophylaxis Plan VTE Prophylaxis will be ordered: Yes Supervising Physician Co-Signing Physician Notes I personally saw and examined the patient. I verified all salazar points and agree with Rashaun Ruth PA-C with the following exceptions and/or additions: 72 year old female with rapid change in mental status. Last known well 8pm last night. Found by daughter today on the toilet much more confused than her baseline. Patient reports feeling fine at this time but is slow to respond and answer questions. Family report she is significantly off her baseline and when woken up from sleeping she is much slower than when she was earlier in the day when seen by the ER. After being awake for an hour however she started to improve again but still significantly different from her baseline. 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 Noted tick bite earlier in the week. O/E Alert, not orientated to place or time, orientated to person, generally has a hard time following commands and will stare straight ahead intermittently, slow to respond, intermittent resting tremors L > R, CN 2-> 12 intact, no extremity weakness or change in sensation HS RRR, Chest CTAB, Abdo SNT, no LE edema. A/P Hypoactive delirium - appears more acute encephalopathy rather than specific focal neurology. Brain MRI negative for stroke. Added inflammatory markers and blood cultures but no specific infection. Appears to be waxing and waning quite a bit, discussed lumbar puncture with ER physician and family. Given lack of WBC, fever, waxing and waning symptoms deferred on admission. Will rehydrate overnight given high specific gravity of urine and ketones. Low tolerance for lumbar puncture tomorrow if symptoms persisting and no infective source found. Could also consider EEG. Neurology consulted. ?lyme/encephalitis, IgM equivocal - will treat for this with doxycycline but unclear this is truley the cause of her symptoms. Repeat UA with straight cath sample. Consult neurology. PG Care Time/CCT Total # of Minutes Spent Total Time Spent with Patient: Total time spent is greater than 50% in coordination of care (as documented) at patient's floor/unit and/or counseling patient: [place] [address] INT INP/OBS CARE 3/75MIN Patient Type Established Medical Decision Making High Complexity Diagnoses Stroke-like symptoms R29.90
[2022-09-16 17:43] LABS: Appearance Urine Clear (Clear); Bacteria Urine Automated Negative (Negative); Bilirubin Urine Negative (Negative); Blood Urine 2+ (Negative); Color Urine Yellow; Epithelial Cell Urine Auto >30 /lpf (0-5); Glucose Urine UA Negative (Negative); Ketones Urine 1+ (Negative); Leukocyte Esterase Urine 1+ (Negative); Nitrite Urine Negative (Negative); Protein Urine Negative (Negative); Specific Gravity Urine > 1.045 (1.000-1.030); Urobilinogen Urine Negative (Negative); pH Urine 6.5 (4.5-7.5)
[2022-09-16] MEDS ORDERED: PHARMACIST DISCHARGE MED REC CONSULT PRN (17:50)
[2022-09-16] MEDS ORDERED: LACTATED RINGER'S 1,000 ML IV ONE (18:19)
[2022-09-16 18:34] LABS: Creatine Kinase 50 U/L (26-192)
[2022-09-16 18:55] LABS: Calcium Oxalate Crystals Urine Present (None Prsent)
--- NOTE | 2022-09-16 19:02 | Magnetic Resonance Report ---
Brain MRI WITHOUT CONTRAST HISTORY: Weakness. Confusion. Aphasia. stroke evaluation TECHNIQUE: Multiplanar multisequence MRI of the brain was performed without the use of contrast. COMPARISON STUDY: Head CT 09/16/2022. FINDINGS: There is no mass, hematoma, midline shift, or acute infarct. The paranasal sinuses are meagan r. The mastoid air cells are clear. The ventricles and sulci demonstrate mild age-related involutiona l changes. Scattered foci of T2 hyperintensity seen within the periventricular and subcortical white matter are nonspecific but suggestive of mild microvascular ischemic changes. The major vascular flow voids at the skull base are well-maintained. IMPRESSION: No acute intracranial abnormality. ACT 112: Negative or not required by law. Electronically signed by: Claude Anthony M.D. 09/16/2022 7:00 PM
[2022-09-16 19:23] LABS: Lyme Ab IgG w/WB Rflx Positive (Negative); Lyme Ab IgM w/WB Rflx Equivocal (Negative)
[2022-09-16] MEDS ORDERED: DOXYCYCLINE HYCLATE 100 MG CAP PO STA (19:45)
[2022-09-16] MEDS ORDERED: DOXYCYCLINE HYCLATE 100 MG in DEXTROSE 5% 100 ML IV STA (20:11)
[2022-09-16] MEDS ORDERED: LACTATED RINGER'S 1,000 ML IV SCH (20:30)
[2022-09-16 20:56] LABS: Amphetamines+Metham, Urine Neg (Neg); Barbiturates, Urine Neg (Neg); Benzodiazepine, Urine Neg (Neg); Cocaine, Urine Neg (Neg); MDMA (Ecstacy), Urine Neg (Neg); Methadone, Urine Neg (Neg); Opiate, Urine Neg (Neg); Phencyclidine, Urine Neg (Neg)
[2022-09-16] MEDS ORDERED: ACETAMINOPHEN 325 MG TAB PO STA (21:28)
[2022-09-16 22:34] LABS: Appearance Urine Clear (Clear); Bacteria Urine Automated Negative (Negative); Bilirubin Urine Negative (Negative); Blood Urine 2+ (Negative); Color Urine Yellow; Glucose Urine UA Negative (Negative); Ketones Urine 2+ (Negative); Leukocyte Esterase Urine Negative (Negative); Nitrite Urine Negative (Negative); Protein Urine Negative (Negative); Specific Gravity Urine > 1.045 (1.000-1.030); Urobilinogen Urine Negative (Negative)
[2022-09-17] MEDS: DOXYCYCLINE HYCLATE 100 MG CAP PO SCH ×2 (08:24→21:03)
[2022-09-17 09:14] LABS: Basophils # (auto) 0.02 K/uL (0-0.2); Basophils % (auto) 0.8 %; Hematocrit (blood only) 37.3 % (37.0-47.0); Hemoglobin 12.6 g/dl (12.0-16.0); Immature Granulocytes # (auto) 0.01 K/uL (0.01-0.20); Immature Granulocytes % (auto) 0.4 %; Lymphocytes # (auto) 0.52 K/uL (1.2-3.4); Lymphocytes % (auto) 21.6 %; Mean Corpuscular Hemoglobin 30.4 pg (25.0-34.0); Mean Corpuscular Hgb Conc 33.8 g/dL (32.0-36.0); Mean Corpuscular Volume 90.1 fL (80.0-100.0); Mean Platelet Volume 8.7 fL (9.4-12.4); Monocytes # (auto) 0.23 K/uL (0.11-0.59); Monocytes % (auto) 9.5 %; Neutrophils # (auto) 1.63 K/uL (1.40-6.50); Neutrophils % (auto) 67.7 %; Platelet Count 154 K/uL (130-400); RDW Coefficient of Variation 13.5 % (11.5-14.5); RDW Standard Deviation 45.1 fL (36.4-46.3); Red Blood Count 4.14 M/uL (4.20-5.40); White Blood Count 2.41 K/ul (4.8-10.8)
[2022-09-17 09:18] LABS: Albumin Globulin Ratio 1.2 (0.9-2); Albumin Level 3.5 gm/dl (3.4-5.0); BUN Creatinine Ratio 14.9 (10-20); Bilirubin,Total 0.5 mg/dl (0.2-1.0); Calcium 8.5 mg/dl (8.6-10.3); Chol HDL Ratio 2.3 (0-5); Creatinine Clr Calc Pharmacy 55.5 ml/min; Est GFR (African American) 100.4 ml/min; Est GFR (Non-African American) 86.6 ml/min; Potassium 3.8 mmol/L (3.5-5.1); Total Protein 6.5 gm/dl (6.0-8.3)
--- NOTE | 2022-09-17 10:24 | Neurology Consultation ---
Date of Consultation September 17, 2022 Assessment & Plan (1) Lyme disease: Encephalopathy yesterday likely secondary to infection, viral vs lyme disease. Noted to still be febrile this AM. No evidence of meningitis, no further confusion with a normal MRI and non-focal neurologic exam. Would not otherwise pursue EEG or LP as they would not exchange trouble shooter. Continue supportive care per medicine team. Please contact us with any further questions. Telehealth Consultation Telehealth Information Telehealth Information: I performed this visit using a real-time telehealth connection between my location and the patients location ([facility]). After connecting through interactive tele-video, patient was identified by name and date of and/or wristband check.Patient (or authorized healthcare advertising representative) was informed that this was a telemedicine visit and it was being conducted confidentially over secure lines. My office door was closed and no one else was present in the room with me.Patient (or authorized healthcare advertising representative) provided consent to proceed with the visit, expressed an understanding of privacy and security of the telemedicine visit, and gave permission to have a hospital advertising representative in the room in order to assist with the visit and to conduct portions of the visit, as needed. I informed the patient (or authorized healthcare advertising representative) that I reviewed their record and presented the opportunity for them to ask any questions regarding the visit today. The patient agreed to participate. History of Present Illness Reason for Consultation: Altered mental status Requesting Physician: Dr. Holloway Attending Physician: Hayden Holloway History of Present Illness Blaire Bhatia is a 72 yo F presenting yesterday with altered mental status and generalized weakness found at home by her daughter. 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 Her daughters check in on her and when she didnt answer the phone yesterday afternoon came to check on her and found her sitting on the toilet confused. She was brought to [facility] ED and found to have lyme disease in the ED. Known tick bite last week. With abx and rehydration she feels much better today. She denies any weakness and has been out of bed to the bathroom without difficulty. No headache, vision changes, speech changes or numbness. She is otherwise aware of what was happening yesterday and denies any loss of consciousness. Allergies Allergy/AdvReac Type Severity Reaction Status Date / Time No Known Allergies Allergy Unverified 09/16/22 17:25 Home Medications Medication Instructions Recorded Confirmed Type multivitamin 1 tab PO DAILY 09/16/22 09/16/22 History Patient History Medical History (Updated 09/16/22 @ 19:48 by Abraham Castelan MD) No pertinent family history No pertinent past medical history Surgical History (Updated 09/16/22 @ 14:52 by Abraham Castelan MD) No pertinent past surgical history Social History Smoking Status: Never smoker Hx Alcohol Use: Yes Alcohol type: beer, wine and hard liquor Hx Substance Use: No Preferred Language: Nigerian Communication Ability: Effective Sas Programmer Required: No Beliefs That Will Affect Care: None Current Living Situation: Spouse Other Information That Helps Us Care for You: No Feels Safe at Home: Yes Safety Concerns: Feels Safe At This Time Assistive Devices: Glasses Assistive Devices Comment: reading glasses Review of Systems +confusion (resolved) Physical Exam Neurological Examination: Mental Status: Awake and alert. Oriented to person, place, and time. Recall 4/5 at 3 minutes. Fluent. Comprehension intact. Affect appropriate. Cranial Nerves: II: Reads NIHSS cards, rosa grossly intact. III/IV/: Versions intact without nystagmus, no gaze preference. V: Facial sensation symmetric to light touch VII: Facial expression symmetric VIII: Hearing intact to voice XII: Tongue midline Motor: Strength was symmetric and antigravity throughout. Pronator drift was absent. There were no abnormal movements. Coordination: Movements were non-ataxic Reflexes: Unable to assess over telemedicine Results & Data Vital Signs (Past 12 Hours) Vital Signs Temp Pulse Pulse Pulse Resp BP Pulse Ox 09/17/22 07:50 38.0 C H 103 H 18 119/68 93 09/17/22 07:29 93 H 09/17/22 00:31 88 09/17/22 03:54 36.7 C 102 H 18 123/73 96 09/17/22 04:28 36.7 C 87 16 102/59 L 95 09/17/22 00:31 36.7 C 87 16 102/59 L 95 09/16/22 23:40 100 H 09/16/22 23:00 99 H 20 112/66 96 09/16/22 23:00 37.5 C O2 Del Method 09/17/22 07:50 Room Air 09/17/22 07:29 09/17/22 00:31 09/17/22 03:54 Room Air 09/17/22 04:28 Room Air 09/17/22 00:31 Room Air 09/16/22 23:40 09/16/22 23:00 Room Air 09/16/22 23:00 Laboratory Results Abnormal lab results 09/16/22 09/16/22 09/16/22 Range/Units 14:35 14:50 14:50 WBC 4.66 L (4.8-10.8) K/ul RBC 4.14 L (4.20-5.40) M/uL MPV 8.9 L (9.4-12.4) fL Lymph # (Auto) 0.63 L (1.2-3.4) K/uL VBG pH (7.36-7.41) Sodium 135 L (136-145) mmol/L Glucose 103 H (70-99(Fasting)) mg/dl POC Glucose 100 H (70-99) mg/dl Calcium (8.6-10.3) mg/dl Alkaline Phosphatase (34-104) U/L C-Reactive Protein (0-0.5) mg/dl Ur Specific [place] (1.000-1.030) Urine Ketones (Negative) Urine Blood (Negative) Ur Leukocyte Esterase (Negative) Urine WBC (Auto) (0-5) /hpf Urine RBC (Auto) (0-4) /hpf U Epithel Cells (Auto) (0-5) /lpf Calcium Oxalate Crystal (None Prsent) Lyme Disease IgG Ab (Negative) Lyme Disease IgM Ab (Negative) 09/16/22 09/16/22 09/16/22 Range/Units 14:50 14:50 14:56 WBC (4.8-10.8) K/ul RBC (4.20-5.40) M/uL MPV (9.4-12.4) fL Lymph # (Auto) (1.2-3.4) K/uL VBG pH 7.42 H (7.36-7.41) Sodium (136-145) mmol/L Glucose (70-99(Fasting)) mg/dl POC Glucose (70-99) mg/dl Calcium (8.6-10.3) mg/dl Alkaline Phosphatase (34-104) U/L C-Reactive Protein 1.72 H (0-0.5) mg/dl Ur Specific [place] (1.000-1.030) Urine Ketones (Negative) Urine Blood (Negative) Ur Leukocyte Esterase (Negative) Urine WBC (Auto) (0-5) /hpf Urine RBC (Auto) (0-4) /hpf U Epithel Cells (Auto) (0-5) /lpf Calcium Oxalate Crystal (None Prsent) Lyme Disease IgG Ab Positive A (Negative) Lyme Disease IgM Ab Equivocal A (Negative) 09/16/22 09/16/22 09/17/22 Range/Units 17:20 21:57 08:34 WBC 2.41 L (4.8-10.8) K/ul RBC 4.14 L (4.20-5.40) M/uL MPV 8.7 L (9.4-12.4) fL Lymph # (Auto) 0.52 L (1.2-3.4) K/uL VBG pH (7.36-7.41) Sodium (136-145) mmol/L Glucose (70-99(Fasting)) mg/dl POC Glucose (70-99) mg/dl Calcium (8.6-10.3) mg/dl Alkaline Phosphatase (34-104) U/L C-Reactive Protein (0-0.5) mg/dl Ur Specific [place] > 1.045 H > 1.045 H (1.000-1.030) Urine Ketones 1+ H 2+ H (Negative) Urine Blood 2+ H 2+ H (Negative) Ur Leukocyte Esterase 1+ H (Negative) Urine WBC (Auto) 10-30 H (0-5) /hpf Urine RBC (Auto) 5-10 H 5-10 H (0-4) /hpf U Epithel Cells (Auto) >30 H 5-10 H (0-5) /lpf Calcium Oxalate Crystal Present A (None Prsent) Lyme Disease IgG Ab (Negative) Lyme Disease IgM Ab (Negative) 09/17/22 Range/Units 08:34 WBC (4.8-10.8) K/ul RBC (4.20-5.40) M/uL MPV (9.4-12.4) fL Lymph # (Auto) (1.2-3.4) K/uL VBG pH (7.36-7.41) Sodium (136-145) mmol/L Glucose 115 H (70-99(Fasting)) mg/dl POC Glucose (70-99) mg/dl Calcium 8.5 L (8.6-10.3) mg/dl Alkaline Phosphatase 29 L (34-104) U/L C-Reactive Protein (0-0.5) mg/dl Ur Specific [place] (1.000-1.030) Urine Ketones (Negative) Urine Blood (Negative) Ur Leukocyte Esterase (Negative) Urine WBC (Auto) (0-5) /hpf Urine RBC (Auto) (0-4) /hpf U Epithel Cells (Auto) (0-5) /lpf Calcium Oxalate Crystal (None Prsent) Lyme Disease IgG Ab (Negative) Lyme Disease IgM Ab (Negative) Diagnostic Findings MRI brain unremarkable
[2022-09-17 10:49] LABS: Estimated Average Glucose 117 mg/dl; Hemoglobin A1C 5.7 % (4.5-5.6)
--- NOTE | 2022-09-17 13:55 | XCELERA ---
[id number] \\[id number]}___[id number]
[2022-09-17] MEDS ORDERED: ACETAMINOPHEN 325 MG TAB PO PRN (21:12)
--- NOTE | 2022-09-17 23:29 | Hospitalist Progress Note ---
Date of Service September 17, 2022 Assessment & Plan (1) Stroke-like symptoms: Plan: -Admit to med/tele -Currently stable -Symptoms appeared to have improved. LIkely tick borne illness. her mental status has improved as well. Likely some delirium from her illness. will continue on doxycycline and monitor her fever curve. she continues to have fevers. appreciate input from Neuro. If fever curve improves will discharge tomorrow. Plan The patient was discussed with Dr. Mayfield at the time of the admission Admission and Anticipated Discharge Date Admission Date: September 16, 2022 Subjective Patient reports feeling better. and has no new complaints. Review of Systems Review of Systems: All systems reviewed & are unremarkable except as noted in HPI & below Physical Exam Constitutional: WD/WN, vitals as above Eyes: PERRL, conjunctivae normal, anicteric sclerae ENMT: external ear and nose normal, oropharynx normal Neck: trachea midline, no thyromegaly Respiratory: normal respiratory effort, lungs clear to auscultation Cardiovascular: RRR, no murmur, no edema Gastrointestinal (Abdomen): normal bowel sounds, soft, nontender, no hepatosplenomegaly Skin: no rashes, warm and dry Neurologic: PERRL, EOMI, accommodation nl, no face palsy, no dysarthria Psychiatric: A+Ox3, euthymic affect Results & Data Results & Data Vital Signs (Past 12 Hours) Vital Signs Temp Pulse Pulse Resp BP BP Pulse Ox 09/17/22 22:33 37.2 C 88 18 136/78 93 09/17/22 19:27 37.4 C 97 H 18 165/67 H 94 09/17/22 16:00 100 H 09/17/22 15:18 37.9 C H 95 H 18 115/71 93 O2 Del Method 09/17/22 22:33 Room Air 09/17/22 19:27 Room Air 09/17/22 16:00 09/17/22 15:18 Room Air PG Care Time/CCT Total # of Minutes Spent Total Time Spent with Patient: Total time spent is greater than 50% in coordination of care (as documented) at patient's floor/unit and/or counseling patient: Coding Level of Care Code 04582 SUB INP/OBS CARE 3/50MIN Diagnoses Stroke-like symptoms R29.90 Comment discussed with Neuro/ chart review, first encounter.
[2022-09-18] MEDS: DOXYCYCLINE HYCLATE 100 MG CAP PO SCH (07:53)
[2022-09-18 09:20] LABS: Mean Corpuscular Hemoglobin 30.7 pg (25.0-34.0); Mean Corpuscular Hgb Conc 34.2 g/dL (32.0-36.0); Mean Corpuscular Volume 89.8 fL (80.0-100.0); Mean Platelet Volume 9.2 fL (9.4-12.4); Platelet Count 146 K/uL (130-400); RDW Coefficient of Variation 13.6 % (11.5-14.5); RDW Standard Deviation 44.9 fL (36.4-46.3); Red Blood Count 4.23 M/uL (4.20-5.40)
[2022-09-18 09:48] LABS: Albumin Globulin Ratio 1.2 (0.9-2); Albumin Level 3.6 gm/dl (3.4-5.0); BUN Creatinine Ratio 24.2 (10-20); Bilirubin,Total 0.4 mg/dl (0.2-1.0); C Reactive Protein 6.84 mg/dl (0-0.5); Calcium 8.8 mg/dl (8.6-10.3); Creatinine Clr Calc Pharmacy 55.9 ml/min; Est GFR (African American) 100.9 ml/min; Potassium 3.8 mmol/L (3.5-5.1); Total Protein 6.6 gm/dl (6.0-8.3)
[2022-09-18 10:13] LABS: ANC (manual) 0.32 K/uL (1.4-6.5); Basophils # (manual) 0.07 K/uL (0-0.2); Basophils % (manual) 3 %; Eosinophils # (manual) 0.05 K/uL (0-0.50); Eosinophils % (manual) 2 %; Lymphocytes % (manual) 74 %; Monocytes # (manual) 0.18 K/uL (0.11-0.59); Monocytes % (manual) 8 %; Neutrophils # (manual) 0.32 K/uL (1.40-6.50); Neutrophils % (manual) 14 %
--- NOTE | 2022-09-18 13:34 | Discharge Summary ---
Date of Service September 18, 2022 Admission HPI Per Admitting Provider Blaire is a 72 year old female with no significant PMH per family who presented to the [facility] ED with her daughters on 09/16/22 due to AMS. Per the ED staff, the patient's daughter found the patient on the toilet this am. According to the daughter the patient appeared altered and was taking increased time to respond to questions than her baseline. In the ED the patient was noted to be tachycardic at 103 but otherwise stable. Labs were significant for a leukopenia of 4.66, lymphocyte count of 0.63, negative alcohol level with UA and tick borne panel pending. CT of the head and CTA of the head/neck were negative for acute abnormalities. Chest xray was also negative for abnormalities. Prior to admission the patient was given 500 mL NSS. At the time of the exam the patient was sitting in bed in no acute distress with her 3 daughters sitting bedside, history was mainly obtained from her daughter's due to her current mental status. They state that at baseline the patient is completely alert and oriented. She lives at home with her and is his primary caregiver. She was in her normal state of health yesterday with her last known well being around 8:30 pm. One of her daughter's was at her house yesterday to help open their pool and confirmed that the patient was herself. This am her one daughter called the patient who did not pickling drum operator multiple times, which is no normal for her. Her daughter went to her home and found the patient sitting on the toilet with her pajamas still on; this was around 1 pm. The daughter who found the patient explained that the patient was confused and was unable to verbalize her thoughts, she denies any obvious focal weakness at that time. Her daughters state that the patient has been under a lot of stress lately but has not companied of fever, chills, headache, changes in vision, hearing, taste, and smell, chest pain, SOB, abd pain, nausea, vomiting, dysuria, increased urinary frequency, hematuria, melena, diarrhea, LE swelling and recent trauma. The patient then denies all of the same ROS questions when asked directly. Her daughter state that the patient told them over the weekend that she pull a tick off her right thigh, they were unable to see the tick them selves. The patient does not have a previous history of tobacco absue, frequent alcohol use, heart disease, neurologic disease, or dyslipidemia. They confirm her only current medication is a multivitamin. Her daughters confirm that she is still not acting herself at the time of the exam, this has been an acute change since last night. The patient is a full code and her daughters would make medical decisions for her if she could not make them herself. Principal Diagnosis stroke like symptoms: viral vs lyme disease Discharge Exam Constitutional WD/WN, vitals as above Eyes PERRL, conjunctivae normal, anicteric sclerae ENMT external ear and nose normal, oropharynx normal Neck trachea midline, no thyromegaly Respiratory normal respiratory effort, lungs clear to auscultation Cardiovascular RRR, no murmur, no edema Gastrointestinal (Abdomen) normal bowel sounds, soft, nontender, no hepatosplenomegaly Skin no rashes, warm and dry Neurologic PERRL, EOMI, accommodation nl, no face palsy, no dysarthria Psychiatric A+Ox3, euthymic affect Discharge Data Allergies Allergy/AdvReac Type Severity Reaction Status Date / Time No Known Allergies Allergy Unverified 09/16/22 17:25 Consultations 09/16/22 17:11 ED Decision to Admit Stat 09/16/22 20:28 Consult Neurology Routine Ordered Studies 09/16/22 14:41 CT angio head w con Stat CT angio neck with con Stat CT head/brain wo con Stat 09/16/22 17:49 MRI Brain [MR brain wo con] Urgent Hospital Course (1) Stroke-like symptoms: -Admit to med/tele -Currently stable -Symptoms appeared to have improved. LIkely tick borne illness. her mental status has improved as well. Likely some delirium from her illness. will continue on doxycycline and monitor her fever curve. she continues to have fevers. appreciate input from Neuro. As fever curve improved, will discharge. Total Time Total Time Spent Total Time Spent (In Minutes): 32 Discharge Plan Discharge Items Patient Disposition: Home - Self-Care Reason For Visit: AMS Discharge Diagnosis: altered mental status Activity: Resume your previous activity Non-emergency contact: Primary Care Provider Call non-emergency contact if: you have any medication questions Follow-up/Referrals: Emerita Matthews MD [Outside Practitioners] - 09/24/22 9:05 am (Reina Paulson not available next week. ) Diet: Regular Addtl Attending Provider Instructions: Please followup with your PCP in 1 week. Continue doxycycline for 21 more doses. Next dose tonight. Please take antibiotics with food. Avoid dairy. Avoid sunlight during the treatment course. Will recommend rechecking CBC and CMP in 7 days. I will provide you with a script. It was a pleasure and I hope you enjoy your summer. Pending Studies at Discharge: No Stand-Alone Forms: My [facility], Smoking Cessation Medications and DC Order Prescriptions: New doxycycline hyclate 100 mg Capsule 100 mg PO BID Qty: 21 0RF Continued multivitamin Tablet 1 tab PO DAILY Discharge Orders: Discharge Order (Routine); Ordered 09/18/22 Ordered By: Hayden Holloway Admission Data Admit Date/Time: 09/16/22 17:29 Attending Provider: Hayden Holloway Admit Provider: Amilcar Mayfield Primary Care Provider: Reina Paulson Other Providers: Amilcar Mayfield ; Kike Bowie Other Interventions: Discharge Summary Assessment (RN) Last Done: 09/18/22 12:43 Coding Level of Care Code 68730 INP/OBS DISCH >30 MIN Diagnoses Stroke-like symptoms R29.90
[2022-09-19 03:11] LABS: 18KDIGG Band REACTIVE; 23KDIGG Band REACTIVE; 23KDIGM Band REACTIVE; 28KDIGG Band REACTIVE; 30KDIGG Band REACTIVE; 39KDIGG Band REACTIVE; 39KDIGM Band NON-REACTIVE; 41KDIGG Band REACTIVE; 41KDIGM Band NON-REACTIVE; 45KDIGG Band REACTIVE; 58KDIGG Band REACTIVE; 66KDIGG Band REACTIVE; 93KDIGG Band REACTIVE; Lyme Antibodies, WB IgG POSITIVE (NEGATIVE); Lyme Antibodies, WB IgM NEGATIVE (NEGATIVE)
[2022-09-20 02:48] LABS: Babesia microti DNA Not Detected (Not Detected)
--- NOTE | 2022-09-30 10:51 | Coding Query ---
A supporting diagnosis is required for the test/procedure performed on this patient in order for us to be reimbursed by the patient's insurance. Please provide a supporting diagnosis for the following test/procedure listed below next to the test name along with your signature. *If there is no additional diagnosis for this patient that would support the following test/procedure please document that below next to the test/procedure. Test(s)/Procedure(s) that require a supporting diagnosis: HBA1C DIAGNOSIS: stroke-like symptoms Provider Signature: Rashaun Ruth PA-C Date: ___ _09/30/22___ Thank you Yudi Taylor Health Information Management Once completed, please kindly fax back to [phone] For questions please call [phone] [place]
== END 2022-09-18 13:46 | disposition home or self-care (01) ==
LOC: ED 14:13 → EDINP 14:13 → SUATTDRO 17:29 → 2N 22:00